=== PATIENT | female | born 2000 | race Hispanic/Latino ===

== ENCOUNTER → 2025-05-03 | Outpatient (CLI) | payer BC ==
--- NOTE | 2025-05-03 11:13 | HMCIMG ---
Procedure: Double contrast upper GI series CLINICAL HISTORY: Stomach pain PROCEDURE: After patient was given effervescent crystals and thin barium. The study demonstrate the esophagus has no intrinsic extrinsic lesion. There is no hiatal hernia seen. There is mild grade 2 esophageal reflux. The stomach is normal size shape and configuration. The rugal fold appears to be normal. The duodenal bulb and duodenal sweep and upper jejunum appears to be normal. IMPRESSION: Grade 2 esophageal reflux otherwise a normal double contrast upper GI series.
== END | disposition home or self-care (01) ==
LOC: RAH 09:18
PROVIDERS: ATTEND Internal Medicine Gastroenterology
DX: K21.9 Gastro-esophageal reflux disease without esophagitis (principal); R10.13 Epigastric pain
CPT/HCPCS: 74240